=== PATIENT | female | born 1970 | race Caucasian/White ===

== ENCOUNTER 2018-04-28 08:53 | Emergency (ER) | payer MEDICAID ==
[~2018-04-28] VITALS: Ht 167.6 cm; Wt 83.0 kg
[2018-04-28 08:57] VITALS: Ht 167.6 cm; Wt 83.0 kg
[2018-04-28 09:50] LABS: UA SPECIFIC GRAVITY <=1.005 (1.005-1.035); microscopic required? YES; urine erythrocyte TRACE (NEGATIVE)
[2018-04-28 09:59] LABS: BASOPHIL % 0.6 % (0-2); PLATELET COUNT 283 x10^3mcL (130-400); RED CELL DISTRIBUTION WIDTH 12.6 % (11.5-14.5)
[2018-04-28 10:31] LABS: ALBUMIN 3.6 g/dL (3.4-5.0); ALKALINE PHOSPHATASE 65 U/L (46-116); ALT/SGPT 30 U/L (14-59); AMYLASE 97 U/L (25-115); AST/SGOT 15 U/L (15-37); BILIRUBIN TOTAL 0.4 mg/dL (0.20-1.00); CALCIUM 8.8 mg/dL (8.5-10.1); CARBON DIOXIDE 27.8 mmol/L (21-32); CHLORIDE SERUM 103 mmol/L (98-107); CREATININE SERUM 0.8 mg/dL (0.6-1.0); GFR1 > 60 mL/min; GLUCOSE SERUM 97 mg/dL (74-106); HDL CHOLESTEROL 44 mg/dL (40-60); LIPASE 122 IU/L (73-393); POTASSIUM SERUM 4.3 mmol/L (3.5-5.1); SODIUM SERUM 136 mmol/L (136-145); TOTAL PROTEIN, SERUM 7.9 g/dL (6.4-8.2)
[2018-04-28 10:32] LABS: CHOLESTEROL 210 mg/dL (<200)
[2018-04-28 10:39] LABS: MAGNESIUM 2.1 mg/dL (1.8-2.4)
[2018-04-28 10:51] LABS: AMPHETAMINE QUAL UR NONE DETECTED (See below)
[2018-04-28 13:36] VITALS: BP 142/98
== END 2018-04-28 13:36 | disposition home or self-care (01) ==
LOC: ED 08:53
PROVIDERS: Emergency Medicine
DX: R42 Dizziness and giddiness (principal); R07.89 Other chest pain; I10 Essential (primary) hypertension
CPT/HCPCS: 82962; 83880; J7030; J8597; Q0092